=== PATIENT | male | born 1945 | race Caucasian/White ===

== ENCOUNTER 2018-04-10 12:24 | Observation (INO) | payer MEDICARE, OTHER ==
[~2018-04-10] VITALS: Ht 172.7 cm; Wt 76.7 kg
[2018-04-10 12:46] LABS: BASOPHILS % (AUTO) 0.6 % (0.0-5.0); EOSINOPHILS % (AUTO) 2.5 % (0.0-8.0); HEMATOCRIT 42.2 % (42-54); LYMPHOCYTES % (AUTO) 23.7 % (21.0-51.0); MEAN CORPUSCULAR HEMOGLOBIN 33.2 pg (27.0-33.0); MEAN CORPUSCULAR HGB CONC 35.3 g/dL (32.0-36.0); MEAN CORPUSCULAR VOLUME 94.1 fL (79-99); MONOCYTES % (AUTO) 12.6 % (3.0-13.0); NEUTROPHILS % (AUTO) 60.6 % (40.0-77.0); PLATELET COUNT (AUTO) 194 K/uL (130-400); RED BLOOD CELL COUNT(AUTO) 4.48 MIL/uL (4.50-6.20); WHITE BLOOD COUNT (AUTO) 6.4 K/uL (4.8-10.8)
[2018-04-10 13:05] LABS: PARTIAL THROMBOPLASTIN TIME 26.3 SEC (26.3-35.5); PROTHROMBIN TIME 10.5 SEC (9.6-11.6)
[2018-04-10] MEDS ORDERED: ONDANSETRON HCL 4 MG/2 ML VIAL ONE (13:07)
[2018-04-10 13:32] LABS: CREATININE 1.2 mg/dL (0.5-1.5); POTASSIUM 3.9 mmol/L (3.5-5.1)
[2018-04-10] MEDS ORDERED: ASPIRIN 325 MG TABLET ONE (13:34)
[2018-04-10] MEDS ORDERED: SODIUM CHLORIDE 0.9% 1000ML 1,000 ML IV ONE (13:34)
[2018-04-10 13:45] LABS: ALBUMIN 3.8 g/dL (3.5-5.0); BILIRUBIN,TOTAL 1.6 mg/dL (0.2-1.0); CREATINE KINASE MB 0.9 ng/mL (0.5-3.6); TOTAL PROTEIN, SERUM 7.1 g/dL (6.0-8.3)
[2018-04-10 16:05] LABS: APPEARANCE,URINE Clear (CLEAR); BILIRUBIN,URINE Negative (NEGATIVE); COLOR,URINE Yellow (YELLOW); GLUCOSE, URINE (UA) Negative (NEGATIVE); KETONES,URINE 15 mg/dL (NEGATIVE); LEUKOCYTE ESTERASE ,URINE Negative (NEGATIVE); NITRATE,URINE Negative (NEGATIVE); OCCULT BLOOD,URINE Negative (NEGATIVE); PH,URINE >=9.0 (5.0-8.0); PROTEIN,URINE Negative (NEGATIVE)
[2018-04-10] MEDS ORDERED: ACETAMINOPHEN EXTRA STRENGTH 500 MG TABLET ONE (16:52)
[2018-04-10 19:15] VITALS: BP 133/69
[2018-04-10] MEDS ORDERED: NITROGLYCERIN 0.4 MG SL TAB SL PRN (19:30)
[2018-04-10] MEDS ORDERED: ENOXAPARIN SODIUM 40 MG/0.4 ML SYRINGE SQ SCH (19:30)
[2018-04-10 20:54] LABS: CREATINE KINASE MB 0.9 ng/mL (0.5-3.6); CREATINE KINASE, TOTAL 58 U/L (21-232); MYOGLOBIN 87 ng/mL (10-92); TROPONIN I < 0.04 ng/mL (0.00-0.06)
[2018-04-10] MEDS: FAMOTIDINE 20MG TAB 20 MG TAB PO SCH (21:20)
[2018-04-10] MEDS ORDERED: ACETAMINOPHEN 325 MG TAB ONE (21:23)
[2018-04-10 23:27] VITALS: BP 105/55
[2018-04-11] MEDS ORDERED: ACETAMINOPHEN 325 MG TAB PO PRN ×2 (03:00)
[2018-04-11] MEDS ORDERED: ONDANSETRON HCL MDV 20ML 2 MG/ML VIAL IVP PRN (03:00)
[2018-04-11 03:52] VITALS: BP 113/63
[2018-04-11 04:13] LABS: CREATINE KINASE MB 0.9 ng/mL (0.5-3.6); CREATINE KINASE, TOTAL 67 U/L (21-232); MYOGLOBIN 85 ng/mL (10-92); TROPONIN I < 0.04 ng/mL (0.00-0.06)
[2018-04-11 07:37] VITALS: BP 110/70
[2018-04-11] MEDS: FAMOTIDINE 20MG TAB 20 MG TAB PO SCH (09:03)
[2018-04-11] MEDS ORDERED: IOPAMIDOL-370 100 ML VIAL IV ONE (10:23)
[2018-04-11 11:21] VITALS: BP 100/58
[2018-04-11] MEDS ORDERED: VITA1TAB39 PO (13:39)
[2018-04-11] MEDS ORDERED: ASPI-1181 PO (13:39)
[2018-04-11] MEDS ORDERED: LORA-705 PO (13:39)
[2018-04-11] MEDS ORDERED: SIMV20TA6 PO (13:39)
[2018-04-11] MEDS ORDERED: TAMS-1 PO (13:39)
[2018-04-11] MEDS ORDERED: BACL10TA PO (13:39)
[2018-04-11] MEDS ORDERED: FLUT15.88 NS (13:39)
[2018-04-11 16:06] VITALS: BP 123/61
== END 2018-04-11 18:46 | disposition home or self-care (01) ==
LOC: EDH 12:24 → EDHIP 16:28 → 2AH 18:13
PROVIDERS: ADMIT Family Medicine; ATTEND Family Medicine
DX: R55 Syncope and collapse (principal); E78.5 Hyperlipidemia, unspecified; F10.10 Alcohol abuse, uncomplicated; R06.00 Dyspnea, unspecified; I65.23 Occlusion and stenosis of bilateral carotid arteries; Z87.891 Personal history of nicotine dependence; Z86.718 Personal history of other venous thrombosis and embolism
CPT/HCPCS: 36415 ×2; 70450; 71045; 71275; 80053; 81003; 82550 ×3; 82553 ×3; 82948; 83874 ×3; 84484 ×3; 85025; 85378; 85610; 85730; 93005; 93306; 93880; 93970; 96372; G0378 ×26; J1650; J2405; J7030; Q9967

== ENCOUNTER → 2019-07-16 | Outpatient (CLI) | payer MEDICARE ==
[~2019-07-16] MED LIST: SIMV20TA6 PO; TAMS-1 PO
== END | disposition home or self-care (01) ==
LOC: RAH 07:15
PROVIDERS: ATTEND Internal Medicine
DX: R10.13 Epigastric pain (principal); R11.0 Nausea
CPT/HCPCS: 76705

== ENCOUNTER → 2019-08-13 | Outpatient (CLI) | payer MEDICARE ==
[~2019-08-13] MED LIST changes: +IOHEXOL-350 75 ML VIAL IV ONE
== END | disposition home or self-care (01) ==
LOC: RAH 07:22
PROVIDERS: ATTEND Internal Medicine
DX: K57.30 Diverticulosis of large intestine without perforation or abscess without bleeding (principal); N28.1 Cyst of kidney, acquired; R91.8 Other nonspecific abnormal finding of lung field; I25.10 Atherosclerotic heart disease of native coronary artery without angina pectoris; M47.816 Spondylosis without myelopathy or radiculopathy, lumbar region
CPT/HCPCS: 74178; Q9967

== ENCOUNTER → 2021-02-25 | Outpatient (CLI) | payer MEDICARE ==
[~2021-02-25] MED LIST changes: -IOHEXOL-350 75 ML VIAL IV ONE; +SIMV-43 PO; -SIMV20TA6 PO
== END | disposition home or self-care (01) ==
LOC: RAH 15:03
PROVIDERS: ATTEND Internal Medicine
DX: R07.9 Chest pain, unspecified (principal)
CPT/HCPCS: 71046

== ENCOUNTER → 2021-03-14 | Outpatient (CLI) | payer MEDICARE | END | disposition home or self-care (01) | LOC: RAH 12:15 | PROVIDERS: ATTEND Internal Medicine | DX: M54.2 Cervicalgia (principal) | CPT/HCPCS: 72040 ==

== ENCOUNTER 2021-04-27 07:44 | Emergency (ER) | payer MEDICARE ==
[~2021-04-27] VITALS: Ht 172.7 cm; Wt 77.1 kg
[2021-04-27 07:47] VITALS: BP 108/70
[2021-04-27] MEDS ORDERED: 0.9%NACL 1000ML 1,000 ML IV SCH (08:15)
[2021-04-27] MEDS ORDERED: MECLIZINE HCL 25 MG TABLET PO SCH (08:15)
[2021-04-27 09:17] LABS: BASOPHILS % (AUTO) 0.5 % (0.0-5.0); HEMATOCRIT 40.7 % (42-54); LYMPHOCYTES % (AUTO) 19.2 % (21.0-51.0); MEAN CORPUSCULAR HEMOGLOBIN 31.7 pg (27.0-33.0); MEAN CORPUSCULAR HGB CONC 34.2 g/dL (32.0-36.0); MEAN CORPUSCULAR VOLUME 92.7 fL (79-99); MONOCYTES % (AUTO) 12.4 % (3.0-13.0); NEUTROPHILS % (AUTO) 64.6 % (40.0-77.0); PLATELET COUNT (AUTO) 181 K/uL (130-400); RED BLOOD CELL COUNT(AUTO) 4.39 MIL/uL (4.50-6.20); WHITE BLOOD COUNT (AUTO) 6.1 K/uL (4.8-10.8)
[2021-04-27 09:27] LABS: CARBON DIOXIDE 30 mmol/L (21-32); CHLORIDE 105 mmol/L (101-111); CREATININE 1.2 mg/dL (0.5-1.5); GLOMERULAR FILTR. RATE CALC 62 mL/min (>60); GLUCOSE,RANDOM 89 mg/dL (70-105); POTASSIUM 3.9 mmol/L (3.5-5.1); SODIUM SERUM 143 mmol/L (136-145); UREA NITROGEN, BLOOD 17 mg/dL (7-18)
[2021-04-27 09:30] LABS: ALANINE AMINOTRANSFERASE 19 U/L (12-78); ALBUMIN 3.3 g/dL (3.5-5.0); ASPARTATE AMINOTRANSFERASE 19 U/L (10-37); BILIRUBIN,TOTAL 1.9 mg/dL (0.2-1.0)
[2021-04-27 09:31] LABS: LIPASE < 50 U/L (114-286)
[2021-04-27 10:07] LABS: APPEARANCE,URINE Clear (CLEAR); BILIRUBIN,URINE Negative (NEGATIVE); COLOR,URINE Dark Yellow (YELLOW); GLUCOSE, URINE (UA) Negative (NEGATIVE); KETONES,URINE 15 mg/dL (NEGATIVE); LEUKOCYTE ESTERASE ,URINE Negative (NEGATIVE); NITRATE,URINE Negative (NEGATIVE); OCCULT BLOOD,URINE Negative (NEGATIVE); PH,URINE 5.5 (5.0-8.0); PROTEIN,URINE Negative (NEGATIVE)
[2021-04-27 10:21] LABS: BACTERIA,URINE None Seen /HPF (None Seen); RBC,URINE 0-1 /HPF (0-1); SQUAMOUS EPITHELIAL CELL,UR Few /HPF (0-2); WBC,URINE 0-1 /HPF (0-1)
[2021-04-27 10:22] LABS: MUCUS,URINE Moderate LPF (None Seen)
[2021-04-27] MEDS ORDERED: IOHEXOL 350 MG/ML 100ML INFUS..BTL IV ONE (11:01)
[2021-04-27 12:00] VITALS: BP 133/58
[2021-04-27 18:37] VITALS: BP 138/84
[2021-04-27] MEDS ORDERED: FAMO-136 PO (19:48)
[2021-04-27 20:16] VITALS: BP 133/81
== END 2021-04-27 20:18 | disposition home or self-care (01) ==
LOC: EDH 07:44
DX: K29.70 Gastritis, unspecified, without bleeding (principal); K80.50 Calculus of bile duct without cholangitis or cholecystitis without obstruction; R42 Dizziness and giddiness; E78.00 Pure hypercholesterolemia, unspecified; Z79.899 Other long term (current) drug therapy
CPT/HCPCS: 36415; 70450; 74177; 76705; 78227; 80053; 81001; 83690; 84484; 85025; 93005; 96360; 96361; 99285; A9537; J7030; Q9967

== ENCOUNTER → 2022-03-31 | Outpatient (CLI) | payer MEDICARE ==
[~2022-03-31] MED LIST changes: +FAMO-136 PO
[2022-03-31 12:45] LABS: CHOLESTEROL 216 mg/dL (<200); HDL CHOLESTEROL 64 mg/dL (29-71); LDL DIRECT 141 mg/dL (0-99); TRIGLYCERIDES 39 mg/dL (30-200)
== END | disposition home or self-care (01) ==
LOC: LAB 08:27
PROVIDERS: ATTEND Internal Medicine Cardiovascular Disease
DX: E78.5 Hyperlipidemia, unspecified (principal)
CPT/HCPCS: 36415; 80061

== ENCOUNTER → 2022-07-10 | Outpatient (CLI) | payer MEDICARE | END | disposition home or self-care (01) | LOC: RAH 12:03 | PROVIDERS: ATTEND Internal Medicine | DX: S60.451A Superficial foreign body of left index finger, initial encounter (principal); X58.XXXA Exposure to other specified factors, initial encounter; Y93.89 Activity, other specified; Y92.89 Other specified places as the place of occurrence of the external cause; Y99.8 Other external cause status | CPT/HCPCS: 73130 ==

== ENCOUNTER 2023-02-21 11:27 | Emergency (ER) | payer MEDICARE ==
[~2023-02-21] VITALS: Ht 170.2 cm; Wt 74.8 kg
[~2023-02-21 11:27] MED LIST changes: +OMEP10SU2 PO; +ROSU10TA28 PO; -SIMV-43 PO
[2023-02-21 12:22] VITALS: BP 106/41
[2023-02-21 13:01] LABS: BASOPHILS % (AUTO) 0.6 % (0.0-5.0); EOSINOPHILS % (AUTO) 2.7 % (0.0-8.0); HEMATOCRIT 38.8 % (42-54); LYMPHOCYTES % (AUTO) 19.2 % (21.0-51.0); MEAN CORPUSCULAR HEMOGLOBIN 31.6 pg (27.0-33.0); MEAN CORPUSCULAR HGB CONC 33.5 g/dL (32.0-36.0); MEAN CORPUSCULAR VOLUME 94.2 fL (79-99); MONOCYTES % (AUTO) 12.4 % (3.0-13.0); NEUTROPHILS % (AUTO) 64.6 % (40.0-77.0); PLATELET COUNT (AUTO) 240 K/uL (130-400); RED BLOOD CELL COUNT(AUTO) 4.12 MIL/uL (4.50-6.20); RED CELL DISTRIBUTION WIDTH 12.1 % (11.0-15.5); WHITE BLOOD COUNT (AUTO) 6.3 K/uL (4.8-10.8)
[2023-02-21 13:10] LABS: CREATININE 1.1 mg/dL (0.5-1.5)
[2023-02-21 13:15] LABS: ALBUMIN 3.3 g/dL (3.5-5.0); TOTAL PROTEIN, SERUM 6.9 g/dL (6.0-8.3)
[2023-02-21] MEDS ORDERED: MECLIZINE HCL 12.5 MG TABLET PO ONE (14:00)
[2023-02-21] MEDS ORDERED: ONDANSETRON 4MG INJ IVP ONE (14:00)
[2023-02-21] MEDS ORDERED: 0.9% NACL 500ML IV.SOLN 500 ML IV ONE (14:00)
[2023-02-21 14:37] LABS: APPEARANCE,URINE CLEAR (CLEAR); BILIRUBIN,URINE NEGATIVE (NEGATIVE); COLOR,URINE LIGHT-YELLOW (YELLOW); GLUCOSE, URINE (UA) NEGATIVE (NEGATIVE); KETONES,URINE NEGATIVE (NEGATIVE); LEUKOCYTE ESTERASE ,URINE NEGATIVE Leu/uL (NEGATIVE); NITRATE,URINE NEGATIVE (NEGATIVE); OCCULT BLOOD,URINE NEGATIVE (NEGATIVE); PROTEIN,URINE NEGATIVE (NEGATIVE); UROBILINOGEN,URINE 0.2 mg/dL (0.2-1.0)
[2023-02-21] MEDS ORDERED: MECL-226 PO (14:53)
[2023-02-21] MEDS ORDERED: ONDA4TAB10 PO (14:53)
[2023-02-21 15:57] LABS: RBC,URINE 0-1 /HPF (0-1); WBC,URINE 0-1 /HPF (0-1)
== END 2023-02-21 15:12 | disposition home or self-care (01) ==
LOC: EDH 11:27
DX: R42 Dizziness and giddiness (principal); R11.0 Nausea; E78.00 Pure hypercholesterolemia, unspecified; Z79.899 Other long term (current) drug therapy; Z98.890 Other specified postprocedural states; Z88.8 Allergy status to other drugs, medicaments and biological substances
CPT/HCPCS: 99285; 96374; 71045; 84484; 80053; 85025; 81001; 36415; 93005; J2405

== ENCOUNTER → 2023-12-12 | Outpatient (CLI) | payer MEDICARE ==
[~2023-12-12] MED LIST changes: +MECL-226 PO; +ONDA4TAB10 PO
== END | disposition home or self-care (01) ==
LOC: RAH 09:50
PROVIDERS: ATTEND Internal Medicine Gastroenterology
DX: Z03.821 Encounter for observation for suspected ingested foreign body ruled out (principal); M47.815 Spondylosis without myelopathy or radiculopathy, thoracolumbar region
CPT/HCPCS: 74018

== ENCOUNTER → 2024-08-27 | Outpatient (CLI) | payer MEDICARE ==
[~2024-08-27] MED LIST changes: +ONDA-243 PO; -ONDA4TAB10 PO; -ROSU10TA28 PO; +ROSU10TA72 PO
== END | disposition home or self-care (01) ==
LOC: RAH 10:08
PROVIDERS: ATTEND Pain Medicine Interventional Pain Medicine
DX: M47.812 Spondylosis without myelopathy or radiculopathy, cervical region (principal); M54.2 Cervicalgia
CPT/HCPCS: 72040

== ENCOUNTER → 2025-03-17 | Outpatient (CLI) | payer MEDICARE ==
[~2025-03-17] MED LIST changes: -TAMS-1 PO; +TAMS-55 PO
--- NOTE | 2025-03-17 15:41 | HMCIMG ---
HIP UNILAT 2-3VW LEFT HISTORY: Left hip pain COMPARISON: None TECHNIQUE: 3 images of the left hip were obtained. FINDINGS: There is no acute displaced fracture or dislocation. Left hip joint space narrowing is seen. Degenerative changes are seen. IMPRESSION: 1. Findings as described above.
== END | disposition home or self-care (01) ==
LOC: LAB 13:27
PROVIDERS: ATTEND Clinical Nurse Specialist Family Health
DX: M16.12 Unilateral primary osteoarthritis, left hip (principal); M25.852 Other specified joint disorders, left hip; M25.552 Pain in left hip
CPT/HCPCS: 73502

== ENCOUNTER 2025-06-26 13:27 | Emergency (ER) | payer MEDICARE ==
[~2025-06-26] VITALS: Ht 170.2 cm; Wt 74.4 kg
--- NOTE | 2025-06-26 13:51 | ERN ---
ED Note History of Present Illness Stated Complaint: HEADACHE Chief Complaint: Headache Time Seen by MD: 13:39 Dictation: PATIENT IS A 80-YEAR-OLD MALE COMING IN FROM LOCAL OPHTHALMOLOGY OFFICE. HE STATES THAT FOR THE LAST WEEK HE HAS HAD VISION CHANGES TO BOTH EYES, WERE ONE I FEELS LIKE IT SEEING FURTHER THAN THE OTHER. HE STATES OCCASIONALLY HE WILL HAVE A FRONTAL HEADACHE AND FEELS BETTER WHEN HE HOLDS HIS HANDS ON HER TAKES TYLENOL [id number]. HIS SECURITY GUARD DISPATCHER TODAY ADVISED HIM TO COME TO THE EMERGENCY ROOM FOR A CAT SCAN. HIS FRONTAL SINUS HEADACHE IS 3/10, NIH SCORE IS 0. THERE WAS NO VISUAL FIELD CUT. NO DIPLOPIA COMPLAINED OF PATIENT DROVE HERSELF TO THE HOSPITAL WITH HIS . Allergies: Coded Allergies: bacitracin (Unverified Allergy, Unknown, 04/10/18) neosporin anti itch neomycin (Unverified Allergy, Unknown, 04/10/18) neosporin anti itch polymyxin B (Unverified Allergy, Unknown, 04/10/18) neosporin anti itch pravastatin (Unverified Allergy, Unknown, 04/10/18) Home Meds Active Scripts Ondansetron (Ondansetron Odt) 4 Mg Tab.rapdis, 4 MG PO TID for NAUSEA, #15 TAB Prov:SUNNY GUZMAN MD 02/21/23 Meclizine HCl (Meclizine HCl) 12.5 Mg Tablet, 12.5 MG PO TID for DIZZINESS , #15 TAB Prov:SUNNY GUZMAN MD 02/21/23 Famotidine (Pepcid) 20 Mg Tablet, 20 MG PO BID, #60 TAB Prov:SHEA CORTES MD 04/27/21 Reported Medications Rosuvastatin Calcium (Rosuvastatin Calcium) 10 Mg Tablet, 10 MG PO AD, TAB 02/03/23 Omeprazole Magnesium (Prilosec) 10 Mg Suspdr.pkt, 20 MG PO BID 02/03/23 Tamsulosin HCl (Flomax) 0.4 Mg Cap.er.24h, 0.4 MG PO HS, CAPSULE. 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 EENT: NEGATIVE EXCEPT FOR HPI RESPIRATORY: NEGATIVE EXCEPT FOR HPI GASTROINTESTINAL/ABDOMINAL: NEGATIVE EXCEPT FOR HPI GENITOURINARY: NEGATIVE EXCEPT FOR HPI MUSCULOSKELETAL: NEGATIVE EXCEPT FOR HPI INTEGUMENTARY: NEGATIVE EXCEPT FOR HPI NEUROLOGICAL/PSYCH: NEGATIVE EXCEPT FOR HPI HEMATOLOGIC/LYMPHATIC: NEGATIVE EXCEPT FOR HPI ALL SYSTEMS NEGATIVE, EXCEPT NOTED ABOVE. 13 POINT REVIEW OF SYSTEMS ASSESSED AND ALL NEGATIVE EXCEPT FOR ABOVE. Initial Vital Sign VS Vital Signs Date Time Temp Pulse Resp B/P (MAP) Pulse Ox O2 Delivery O2 Flow Rate FiO2 06/26/25 13:29 98.2 65 16 123/50 97 Room Air 0 06/26/25 13:33 21 Physical Exam Dictation VITAL SIGNS REVIEWED GENERAL APPEARANCE: ALERT, ORIENTED X 3, NO ACUTE DISTRESS, WELL DEVELOPED, NOURISHED. HEAD AND FACE: NON-TRAUMATIC. EYES: PERRL, PINK CONJUNCTIVAS, EYELID NO TRAUMA, ANTERIOR CHAMBER WITH ARCUS SENILIS. EOMS INTACT NO VISUAL FIELD CUTS. PATIENT DOES WEAR CORRECTIVE LENSES. EARS: PINNAS INTACT AND NO SIGNS OF TRAUMA OR ERYTHEMA EAR CANALS CLEAR AND NO DISCHARGE TM NO ERYTHEMA NOSE: NO DISCHARGE, NO BLEEDING. OROPHARYNX: MOUTH NORMAL, TONGUE PINK, PHARYNX CLEAR,NO ERYTHEMA, TONSILS NO EXUDATES, NO ABSCESSES NOTED, MUCOUS MEMBRANE MOIST NECK: SUPPLE, NON-TENDER, NO THYROMEGALY, NO MASSES, NO JVD, NO BRUITS BREAST:DEFERRED CHEST:NO TENDERNESS, NO CREPITUS, NO PARADOXICAL MOVEMENT, NO RETRACTIONS LUNGS:CLEAR, WELL-VENTILATED, SYMMETRIC, NO RALES, NO WHEEZING, NO RHONCHI, NO STRIDOR, GOOD BREATH SOUNDS BILATERALLY HEART: REGULAR RATE, REGULAR RHYTHM, NO MURMUR, NO GALLOPS VASCULAR: NO PERIPHERAL EDEMA, ABDOMEN: SOFT, POSITIVE BOWEL SOUNDS, NONDISTENDED, NO GUARDING, NONTENDER, NO REBOUND, NO MASSES NO HEPATOMEGALY, NO SPLENOMEGALY, NO KULKARNI'S SIGN, NO HERNIAS. RECTAL: DEFERRED GENITAL: DEFERRED NEUROLOGICAL: NORMAL SPEECH, MOTOR FUNCTION INTACT, SENSORY FUNCTION INTACT NIH IS 0 MUSCULOSKELETAL: NECK NONTENDER, FULL RANGE OF MOTION, BACK NONTENDER, FULL RANGE OF MOTION, EXTREMITIES: NONTENDER, FULL RANGE OF MOTION SKIN: COLOR PINK, DRY, NO TURGOR, NO RASH, NO LACERATIONS, NO ABRASIONS, NO CONTUSIONS. LYMPHATIC: DEFERRED Results (Laboratory/Radiology) Laboratory/Radiology : 1945 SEX: M AGE: 80 LOCATION: [facility] ORDER 47 STATUS: REG ER REPORT#: [id number] SERVICE 47 REASON: INTERMITTENT VISION CHANGES LEFT EYE TO RIGHT EYE. ORDERING PHYSICIAN: MELVINA ZARATE NP PROCEDURE: HEAD WO - CT HEAD/BRAIN W/O CONTRAST Exam: NONCONTRAST CT BRAIN REASON: INTERMITTENT VISION CHANGES LEFT EYE TO RIGHT EYE.. COMPARISON: None. TECHNIQUE: Images are obtained from vertex to the skull base. The exam was performed without IV contrast. FINDINGS: There is normal appearing brain parenchyma. There are no focal mass lesions. There is is no evidence of intracranial hemorrhage or acute stroke. Ventricles and sulci appear normal. Posterior fossa and brainstem structures are unremarkable. Paranasal sinuses and remaining extracranial soft tissues appear normal as well.There is global atrophy with periventricular ischemic white matter changes. IMPRESSION: 1. No acute intracranial process CT was performed with one or more following dose reduction techniques: automated exposure control, adjustment of the mA and kv according to patient's size, or use of a iterative reconstruction technique. ED Course ED Course Orders Procedure Category Date Status Time Acetaminophen 500mg PHA 06/26/25 Complete Tab (Tylenol 500mg T 14:00 Ct Head/Brain W/O CT 06/26/25 Resulted Contrast 13:48 Visual Acuity Test CPOE 06/26/25 Transmitted (Er) 15:07 Current Medications Medications (Trade) Dose Ordered Sig/Michael Route PRN Reason Start Time Stop Time Status Last Admin Dose Admin Acetaminophen (TYLenol 500MG TAB) 1,000 mg ONCE ONCE PO 06/26/25 14:00 06/26/25 14:01 DC Vital Signs Date Time Temp Pulse Resp B/P (MAP) Pulse Ox O2 Delivery O2 Flow Rate FiO2 06/26/25 15:11 98.1 65 16 125/55 98 Room Air* 0 21 06/26/25 13:33 98.2 65 16 123/50 97 Room Air* 0 06/26/25 13:29 98.2 65 16 123/50 97 Room Air 0 1520/PATIENT 2067 WITH BOTH EYES AND WITH GLASSES. DISCHARGED FROM THE EMERGENCY ROOM WITH EOMS INTACT NO DIPLOPIA, NO ACUTE VISUAL ACUITY CHANGES. NO VISUAL FIELD CUT Medical Decision Making MDM MEDICAL DISCHARGE MAKING BASED ON CAT SCAN OF THE HEAD REQUESTED BY OPHTHALMOLOGY CAT SCAN UNREMARKABLE PATIENT REFUSED TYLENOL FOR HIS FRONTAL SINUS HEADACHE EXPLAINED TO HIM THAT I WOULD BE REFERRING HIM AND HE WILL NEED TO CALL FOR AN APPOINTMENT WITH ALL QUESTIONS AND DX & DISP Disposition: Discharge Departure Impression: Primary Impression: Vision changes Additional Impression: Sinus headache Condition: Stable Additional Instructions: FOLLOW-UP WITH PRIMARY CARE PROVIDER IN 1 TO 2 DAYS. TAKE MEDICATIONS DIRECTED HERE IN THE EMERGENCY ROOM. OKAY TO CONTINUE HOME MEDICATIONS UNLESS OTHERWISE DISCUSSED DURING YOUR VISIT IN THE EMERGENCY ROOM TODAY. RETURN TO YOUR NEAREST EMERGENCY ROOM IF SYMPTOMS WORSEN OR IF THERE IS NO IMPROVEMENT. CALL 911 IF YOU NEED IMMEDIATE ASSISTANCE. TAKE TYLENOL OR MOTRIN [id number] NEEDED AND IF NO CONTRAINDICATIONS ARE PRESENT. INCREASE ORAL HYDRATION. A WOUND CULTURE OR URINE CULTURE WAS ORDERED HERE IN THE EMERGENCY ROOM DEPARTMENT PLEASE FOLLOW-UP WITH PRIMARY CARE PROVIDER AND ADVISE THEM TO GET REPEAT PORTS FROM OUR FACILITY. IF YOU HAD ANY JEROME WRAP/SPLINTS THAT WERE APPLIED HERE, PLEASE DO NOT REMOVE THEM UNTIL YOU SEE YOUR PRIMARY CARE OR SPECIALTY. CALL NEUROLOGIST FOR APPOINTMENT IN THE NEXT 1-2 DAYS. TYLENOL OR MOTRIN [id number] NEEDED FOR YOUR HEADACHE. Referrals: KENYATTA PFEIFFER MD (PCP) TRACEY SAENZ MD Time of Disposition: 15:26 I have reviewed the case, and I agree with, Diagnosis and Plan MELVINA ZARATE NP Jun 26, 2025 13:51
--- NOTE | 2025-06-26 14:59 | HMCIMG ---
Exam: NONCONTRAST CT BRAIN REASON: INTERMITTENT VISION CHANGES LEFT EYE TO RIGHT EYE.. COMPARISON: None. TECHNIQUE: Images are obtained from vertex to the skull base. The exam was performed without IV contrast. FINDINGS: There is normal appearing brain parenchyma. There are no focal mass lesions. There is is no evidence of intracranial hemorrhage or acute stroke. Ventricles and sulci appear normal. Posterior fossa and brainstem structures are unremarkable. Paranasal sinuses and remaining extracranial soft tissues appear normal as well.There is global atrophy with periventricular ischemic white matter changes. IMPRESSION: 1. No acute intracranial process CT was performed with one or more following dose reduction techniques: automated exposure control, adjustment of the mA and kv according to patient's size, or use of a iterative reconstruction technique.
--- NOTE | 2025-06-26 15:08 | NUR ---
VISUAL ACUITY TEST 20/70 BILATERAL
[2025-06-26 15:11] VITALS: BP 125/55; PULSE 65; RESP 16; TEMP 98.1; O2SAT 98
== END 2025-06-26 15:35 | disposition home or self-care (01) ==
LOC: EDH 13:27
DX: R51.9 Headache, unspecified (principal); H57.89 Other specified disorders of eye and adnexa; I10 Essential (primary) hypertension; Z79.899 Other long term (current) drug therapy
CPT/HCPCS: 70450; 99284